=== PATIENT | female | born 1965 | race Caucasian/White ===

== ENCOUNTER 2020-01-24 09:21 | Day surgery (SDC) | payer OTHER, SELFPAY ==
[2020-01-18 08:25] VITALS: BMI 35.6
--- NOTE | 2020-01-24 | PATH_ITS ---
[facility] Accession Number: [id number] . 01 Material submitted: . PART A: endometrium - ENDOMETRIAL CURETTINGS PART B: endometrium - ENDOMETRIAL POLYPS . 01 Clinical history: . HYSTERECTOMY D/C . 02 Diagnosis: A. Endometrial Curettings: Squamous mucosa with reactive features; negative for squamous dysplasia or malignancy. Small portions of weakly proliferative endometrium; negative for glandular hyperplasia, cytologic atypia, or malignancy. . B. Endometrial Polyps: Portions of disordered proliferative endometrium; negative for glandular hyperplasia, cytologic atypia, or malignancy. Some endometrial fragments demonstrate prominent vessels, suggestive of polyp, if clinical and imaging studies are concordant. MRV 01/28/2020 1458 Local . 02 Electronically signed: . Anastasiia Merlos MD, Pathologist NPI- [id number] . 01 Gross description: . Part A: ENDOMETRIAL CURETTINGS: Received in formalin are minute fragments of mucoid and hemorrhagic material measuring 0.2 x 0.2 x 0.2 cm in aggregate. Submitted in toto in 1 cassette. Part B: ENDOMETRIAL POLYPS: Received in formalin are 3 fragment(s) of gonzalez, soft tissue measuring 0.6 x 0.3 x 0.3 cm to 0.8 x 0.6 x 0.5 cm submitted entirely in 1 cassette(s) /PRO 01/25/2020 0035 Local . 02 Pathologist provided ICD-10: N95.0 . 02 CPT . 740416, [id number] Performed at: 01 [facility] [address] [facility] [place], [place], [place] [id number] MD Gera Templeton MD Phone: [phone] Performed at: [facility] [address] [place], [place] [id number] MD Meghan Smith MD Phone: [phone]
[2020-01-24 10:54] VITALS: BP 145/91; PULSE 49; RESP 14; TEMP 36.2; O2SAT 99; BMI 34.9
[2020-01-24] MEDS: LACTATED RINGERS 1,000 ML 100 ML IV (11:15)
--- NOTE | 2020-01-24 12:00 | PM.PREOP ---
Pre-operative Note COVID-19 COVID-19 status: Negative Result date/Date tested (Pos, Neg/Pending): 01/21/20 Interval Note History & Physical reviewed/Exam performed by Physician: Yes Changes to H&P: No
--- NOTE | 2020-01-24 12:26 | SUR.OPER ---
Lithotomy on padded OR bed, head on pillow, arms secured on padded arm boards at <90 degrees abduction. Legs secured in padded yellow fins stirrups.
[2020-01-24 12:37] VITALS: BP 128/75; PULSE 55; RESP 15; TEMP 36.1; O2SAT 93
[2020-01-24 12:41] VITALS: BP 128/75; PULSE 56; RESP 17; TEMP 36.1; O2SAT 92
--- NOTE | 2020-01-24 12:43 | PM.OP.1 ---
Operative Date/Time/Diagnoses Date of procedure: 01/24/20 Time of procedure: 12:43 Pre-op diagnosis: Postmenopausal bleeding with polyp likely on ultrasound Post-op diagnosis: same Procedure & Clinicians Procedure: Hysteroscopy with resection of endometrial polyps and endometrial curettage Same procedure as scheduled: Yes Indications: Postmenopausal bleeding with polypoid structure likely on ultrasound Surgeon: Melanie Painter Click Yes if Unassisted: Yes Anesthesia Type: General Operative Notes Findings: 2 polyps 1 in the right tubal ostia area and 1 on the right uterine sidewall near the internal os Closure Type: not applicable Specimen(s): other (Endometrial polyps and uterine curettage) Estimated Blood Loss (mL): 5 Blood products transfused: none Procedure in detail: The patient was brought to the operating room where she underwent general anesthesia. She was placed in low stirrups She was prepped and draped in usual sterile fashion with pulsatile stockings in place and functional, warming in place, no antibiotics were indicated. Her bladder was drained with in and out catheter. A single-tooth tenaculum was placed on the anterior lip of the cervix and the uterus dilated to #10 Hegar dilator. The hysteroscope was placed into the uterus with a sorbitol solution running and under constant suction. The resecting loop set at 80 W of cutting was used to resect the 2 polyps down to the level of the endometrium. A endometrial curettage was performed. The polyps and the endometrial curettage was sent to pathology. The patient went to recovery room in good condition counts of instruments and sponges were correct. Estimated blood loss less than 5 mL. The sorbitol solution I=O approximately 1000 mL. Complications: none Post-operative Condition: stable Disposition: same day surgery Plan for aftercare: Home when awake and stable treatment and follow-up based on biopsy results
[2020-01-24 12:47] VITALS: BP 155/88; PULSE 54; RESP 11; O2SAT 48
[2020-01-24 12:52] VITALS: BP 144/92; PULSE 61; RESP 13; O2SAT 97
[2020-01-24] MEDS: OXYCODONE/ACETAMINOPHEN 5/325 TABLET 1 TAB PO (12:55)
[2020-01-24 13:04] VITALS: BP 161/106; PULSE 52; RESP 17; O2SAT 97
== END 2020-01-24 13:25 | disposition home or self-care (01) ==
PROVIDERS: PCP Specialist; Referring Provider Specialist; Visit Provider Specialist
PROC: 0UDB8ZZ Extraction of Endometrium, Via Natural or Artificial Opening Endoscopic (ICD-10-PCS; CPT 58558; principal; 2020-01-24 12:30)
DX: N95.0 Postmenopausal bleeding (principal)
CPT/HCPCS: 58558; J1100; J1885; J2250; J2405; J2704; J3010